=== PATIENT | female | born 1975 | race Two or more races ===

== ENCOUNTER → 2024-08-18 | Outpatient (CLI) | payer MEDICAID, SELFPAY ==
--- NOTE | 2024-08-18 08:30 | XR_ITS ---
Examination: Breast ultrasound, unilateral, right complete Date and time of exam: August 18, 2024 1012 hours INDICATIONS: Family history breast cancer, right breast sonogram November 23, 2023 10:00 nodule 7 x 6 mm Technique: Real-time lozano scale ultrasonographic imaging performed right breast including all 4 quadrants as well as nipple retroareolar and axillary region. Findings: Multiple benign cysts, the largest in the 10:00 position 7 x 7 mm 7:00 nodule circumscribed 7 x 4 x 5 mm IMPRESSION: BI-RADS Category 3: Probably benign findings One additional 6 month right breast sonogram follow-up is needed to document continued stability of 10:00 nodule described above
--- NOTE | 2024-08-18 09:00 | XR_ITS ---
Examination: Screening digital mammography, bilateral Computer aided detection 3-D breast Tomosynthesis, bilateral Date and time of exam: August 18, 2024 1036 hours Compared to mammograms dated to June 28, 2022 Indication: Screening Technique: Nonmagnified MLO, CC views of the breasts to been obtained, reconstructed from 3-D Tomosynthesis images. R2 computer aided detection program utilized for evaluation of suspicious masses and/or abnormal calcifications. 3-D Tomosynthesis images obtained. Findings: The breasts are heterogeneously dense, which may obscure small masses 2 focal asymmetries each 12 mm nipple level right breast and inner right breast on the CC view Impression: BI-RADS Category 0: Incomplete: Need additional imaging evaluation, recommend follow-up spot tomographic views cc mid breast, upper right breast MLO view
== END | disposition home or self-care (01) ==
PROVIDERS: PCP Physician Assistant; Referring Provider Obstetrics & Gynecology; Visit Provider Obstetrics & Gynecology
DX: Z12.31 Encounter for screening mammogram for malignant neoplasm of breast (principal); R92.1 Mammographic calcification found on diagnostic imaging of breast; N63.11 Unspecified lump in the right breast, upper outer quadrant
CPT/HCPCS: 76641; 77063; 77067

== ENCOUNTER → 2024-09-04 | Outpatient (CLI) | payer MEDICAID, SELFPAY ==
--- NOTE | 2024-09-04 10:00 | XR_ITS ---
Examination: Abdomen sonogram, complete Date and time of exam: September 04, 2024 1009 hours INDICATIONS: Abnormal liver enzymes on outside examination performed one month ago. Technique: Multiple real-time grayscale transabdominal sonographic images of the abdomen have been obtained. Findings: Normal gallbladder Normal common bile duct 0.6 cm Pancreas obscured by bowel gas Aorta not enlarged Liver 14.9 cm fatty infiltration no focal liver lesions Normal hepatopedal portal venous flow Patent IVC Right kidney 10.7 cm cortex 1.1 cm Left kidney 10.1 cm cortex 1.4 cm Mild renal parenchymal scar formation Mild left hydronephrosis Spleen 7.6 cm Impression: Normal gallbladder Fatty liver Mild left hydronephrosis
== END | disposition home or self-care (01) ==
PROVIDERS: PCP Physician Assistant; Referring Provider Physician Assistant; Visit Provider Physician Assistant
DX: K76.0 Fatty (change of) liver, not elsewhere classified (principal); N13.30 Unspecified hydronephrosis
CPT/HCPCS: 76700

== ENCOUNTER → 2025-01-08 | Outpatient (CLI) | payer MEDICAID, SELFPAY ==
--- NOTE | 2025-01-08 13:30 | XR_ITS ---
Examination: Ultrasound liver elastography Date and time: January 08 2025 1328 hours INDICATIONS: Fatty liver diagnosis 10 months TECHNIQUE AND FINDINGS: Sonographic images liver with assessment tissue stiffness average Liver 12.6 cm smooth contour no focal liver lesions. Normal hepatopedal portal venous flow Patent IVC Tissue stiffness average 1.2 m/s normal range IMPRESSION: A normal tissue stiffness average
== END | disposition home or self-care (01) ==
LOC: CDIM 13:16
PROVIDERS: Referring Provider Physician Assistant; Visit Provider Physician Assistant
DX: K76.0 Fatty (change of) liver, not elsewhere classified (principal)
CPT/HCPCS: 76981